=== PATIENT | male | born 1955 | race Caucasian/White ===

== ENCOUNTER → 2023-08-12 | Outpatient (CLI) | payer MEDICARE, OTHER, SELFPAY ==
[2023-08-12 12:53] LABS: Allen Test Positive; Base Excess 2 mmol/L (-2 to +2); Bicarbonate 27.6 mmol/L (22-26); Blood Gas Specimen Type ART; Mode Not entered; O2 Delivery Device Cannula; PO2 66 mmHG (75-100); SITE L Radial; SO2 92 % (95-99); Total Carbon Dioxide 29 mmol/L; pCO2 47.4 mmHg (35-45); pH 7.37 (7.35-7.45)
== END | disposition home or self-care (01) ==
LOC: PSN 12:31
PROVIDERS: PCP Nurse Practitioner Adult Health
DX: J96.11 Chronic respiratory failure with hypoxia (principal)
CPT/HCPCS: 36600; 82803